=== PATIENT | male | born 1955 | race Caucasian/White ===

== ENCOUNTER 2023-12-31 15:18 | Outpatient (CLI) | payer MEDICARE, OTHER, SELFPAY ==
--- NOTE | 2023-12-31 15:30 | MR_ITS ---
[address] [address] Phone:?[phone] Fax:?[phone] Referring Physician Information: Bob Perdomo M.D. [address] [facility] [address] Phone:?[phone] Fax:?[phone] Patient:?Matty Naranjo D.O.B:?1955 Sex:?Male Phone:?[phone] [facility] MRN:?[id number] Exam Date:?12/31/2023 EXAM: MRI of the RIGHT SHOULDER, without contrast CLINICAL INFORMATION: Male, 68 years old, with right shoulder pain. INDICATION: Evaluate for rotator cuff tear. PRIOR SURGERY: None reported. PLAIN FILMS: Shoulder radiograph dated 11/28/2023. COMPARISONS: No prior MRIs available. TECHNICAL INFORMATION: Using a 1.5T MR scanner and a localizing surface coil: coronal obliques: PD, T2, STIR sagittal obliques: PD, T2 axials: PD, T2 SEDATION: None CONTRAST: None FINDINGS: Bones: Proximal humerus: No fracture or marrow edema/pathology. No humeral Hill-Sachs or reverse Hill-Sachs lesion/impaction or contusion. Glenoid: No fracture or marrow edema/pathology. No osseous Bankart lesion. Rotator cuff and muscles/tendons: Supraspinatus: Full-thickness, essentially full-width tear of supraspinatus, tendon retraction to the mid humeral head. No muscle atrophy. A few poor quality tendon fibers may remain partially intact, posteriorly. Infraspinatus: Moderate marked infraspinatus tendinopathy with a 2.2 x 2.6 cm area of intermediate grade partial-thickness articular surface tearing (sagittal T2 series 8 image 7 and coronal T2 series 6 image 16). No muscle atrophy. Teres minor: No tendinopathy, tear or atrophy. Subscapularis: Mild-moderate tendinopathy of the superior distal subscapularis, with partial-thickness interstitial tearing at the superior leading edge of the tendon over an area measuring 1.1 x 1.1 cm and involving approximately one third of the tendon thickness (sagittal PD series 7 image 12 and axial PD series 3 image 19). Additionally, 2 intramuscular lipomas are present within the subscapularis muscle belly, the larger of which measures 3.5 x 1.3 x 3.2 cm. Deltoid: No strain or atrophy. Coracoacromial arch: Acromion morphology: The acromion has type II morphology. No discrete subacromial osseous spur or os acromiale. Acromiohumeral space: The acromiohumeral space is within normal limits. Coracohumeral space: The coracohumeral space is within normal limits. Acromioclavicular joint: Joint: Marked AC joint arthropathy with 5 mm of inferior osteophytosis, which effaces the underlying supraspinatus (sagittal T2 series 8 image 18 and coronal T2 series 6 image 13) Ligaments: Coracoclavicular ligaments are intact. Bursae: Subacromial-subdeltoid: Moderate subacromial-subdeltoid bursitis. Subcoracoid: No convincing subcoracoid bursal thickening/bursitis. Biceps tendon: The long head of the biceps tendon is present within the bicipital groove, but becomes medially subluxated at the lesser tuberosity. Mild-moderate tendinopathy and fraying of the intra-articular biceps long head tendon, without split/tear (sagittal PD series 7 images 11-16). Glenohumeral joint: Effusion/cyst: Mild-moderate glenohumeral joint effusion. Articular cartilage: Humeral head: No osteochondral abnormalities. Glenoid: No osteochondral abnormalities. Loose bodies: No discrete intra-articular body within the joint. Labrum:?Intrasubstance degeneration and linear tearing is present throughout the superior and posterosuperior labrum (coronal STIR series 4 images 13-19). The remainder of the labrum is intact. No paralabral cyst. Inferior glenohumeral ligament/axillary pouch:?Intact. The axillary pouch is normal in thickness and signal. No evidence of adhesive capsulitis or capsular injury. IMPRESSION: 1. Full-thickness, essentially full-width tear of supraspinatus, tendon retraction to the mid humeral head. There is also moderate-marked infraspinatus tendinopathy with broad-based intermediate grade partial-thickness articular surface tearing. 2. Findings in keeping with a biceps stephany injury: -Mild-moderate subscapularis tendinopathy with a 1.1 x 1.1 cm area of low-grade partial-thickness interstitial tearing at the superior leading edge of the tendon. 2 intramuscular lipomas are incidentally noted in the subscapularis muscle belly. -Medial subluxation of the biceps long head tendon at the lesser tuberosity. -Mild-moderate tendinopathy and fraying of the intra-articular biceps long head tendon. 3. Intrasubstance degeneration and linear tearing of the superior/posterosuperior labrum, which is of uncertain clinical significance. 4. Marked AC joint arthropathy with inferior osteophytosis that effaces the underlying supraspinatus. Additionally, there is moderate subacromial-subdeltoid bursal fluid/bursitis. However, the acromiohumeral space is normal. 5. No full-thickness chondral defect or evidence of glenohumeral joint osteoarthritis. BC Electronically signed on 01/01/2024 8:23:00 AM by Rohan Chaudhari M.D.
== END 2023-12-31 15:19 | disposition home or self-care (01) ==
PROVIDERS: PCP Nurse Practitioner; Visit Provider Orthopaedic Surgery
DX: M25.511 Pain in right shoulder (principal); M75.101 Unspecified rotator cuff tear or rupture of right shoulder, not specified as traumatic; S43.431A Superior glenoid labrum lesion of right shoulder, initial encounter; M75.51 Bursitis of right shoulder; M19.011 Primary osteoarthritis, right shoulder
CPT/HCPCS: 73221

== ENCOUNTER 2024-03-09 07:12 | Day surgery (SDC) | payer MEDICARE, OTHER, SELFPAY ==
[2024-03-09] VITALS (15 sets, daily range): BP systolic 122–153; BP diastolic 62–95; PULSE 56–74; RESP 14–18; TEMP 36.1–37.3; O2SAT 93–98; BMI 30.1
[2024-03-09] MEDS: EPINEPHrine 1 MG in SODIUM CHLORIDE IRRIG SOLUTION 3,000 ML 9003 MG IRRIGATION ×3 (07:30→08:10)
[2024-03-09] MEDS: ACETAMINOPHEN 500 MG TABLET 1000 MG PO (08:01)
[2024-03-09] MEDS: CELECOXIB 200 MG CAPSULE PO (08:01)
[2024-03-09] MEDS: OXYCODONE (CR) 10 MG TAB.ER.12H PO (08:01)
[2024-03-09] MEDS: LACTATED RINGERS 1000 ML 1,000 ML 100 ML IV ×2 (08:05→09:21)
[2024-03-09] MEDS: SODIUM CHLORIDE 0.9 % (FLUSH) 10 ML SYRINGE IVF (08:06)
[2024-03-09] MEDS: fentaNYL 100 MCG/2 ML inj IVP (08:37)
[2024-03-09] MEDS: MIDAZOLAM HCL 1 MG/ML inj IVP (08:37)
--- NOTE | 2024-03-09 08:38 | SUR.PREOP ---
TIME?OUT:?0836 PT/RN/MDA?VERIFICATION?OF?SURGICAL?SITE,?PROCEDURE,?AND?CONSENT OBTAINED?PRIOR?TO?INVASIVE?PROCEDURE. all in agreement
[2024-03-09] MEDS: CEFAZOLIN 2 GM INJ IVP (09:00)
--- NOTE | 2024-03-09 09:45 | W.PM.NB ---
Nerve Block Nerve Block Time Seen by Provider: 08:38 Date Seen: 03/09/24 Type of block requested by surgeon for post-operative analgesia: supraclavicular Side: right Time out performed: Yes Verification of patient name: Yes Verification of date of : Yes Site marking: site marked Name of person performing procedure: Jim Continuous monitoring Was continuous monitoring of O2 sat, B/P, satellite project site monitor, recorded every 15 minutes?: Yes Procedure Checklist: sterile prep, needles and gloves Ultrasound guided. Images saved: Yes Medications given in 5ml increments after negative aspiration: Ropivicaine %: 0.5 mL: 20 Needle gauge: 22 Decadron (mg): 10 Precedex (mcg): 25 Patient tolerated procedure well: Yes Block Charges Block Charge (with Pro Fee): Brachial Plexus Use of Ultrasound Machine for Block: Yes- US Guidance/pain block
--- NOTE | 2024-03-09 09:45 | W.ANESCHARGE ---
Anesthesia Charges Start Date/Time Anesthesia Start Date: 03/09/24 Anesthesia Start Time: 08:51 Stop Date/Time Anesthesia Stop Date: 03/09/24 Anesthesia Stop Time: 10:44
--- NOTE | 2024-03-09 10:15 | PM.ORPRC ---
Procedure Note Date of procedure: 03/09/24 Procedure: PREOPERATIVE DIAGNOSIS: Right shoulder rotator cuff tear, AC joint arthrosis, labral tearing POSTOPERATIVE DIAGNOSIS: Right shoulder rotator cuff tear, AC joint arthrosis, labral tearing NAME OF OPERATION: Right shoulder arthroscopic limited glenohumeral debridement, subacromial decompression, distal clavicle excision, mini open rotator cuff repair SURGEON: Bob Perdomo MD [employer] OFFBEARER: Suzy Reddy PA-C ANESTHESIA: Supraclavicular block plus general endotracheal ESTIMATED BLOOD LOSS: 5 mL COMPLICATIONS: None SPECIMENS: None DRAINS: None PREOPERATIVE ANTIBIOTICS: Ancef 2 grams INDICATIONS: The patient is a 68-year-old with a history of right shoulder pain secondary to the above diagnoses. Despite appropriate non operative management, they continue to have symptoms. Operative intervention was recommended. The risks, benefits and expected outcomes were discussed in detail. These included but were not limited to: Infection, bleeding, injury to blood vessel or nerve, venous thromboembolism. All questions were answered to their satisfaction. PROCEDURE: A supraclavicular block was placed by Anesthesia. General anesthesia was administered. The patient was placed in the high beach chair position. The right shoulder was prepped and draped in the usual sterile fashion. The glenohumeral joint was infiltrated with 20 mL of normal saline with epinephrine. The posterior portal was established, the arthroscope was introduced. The anterior portal was established, Diagnostic arthroscopy was performed with findings as follows: The biceps and biceps anchor are intact. There is no biceps instability. The anterior, posterior and superior labrum show age-appropriate degenerative tearing. Articular surfaces on the humeral head and glenoid are normal. There are no loose bodies. There is a full-thickness tear of the supraspinatus, into the infraspinatus. The upper border of the insertion of the subscap appears normal. The anterior, superior and posterior labrum was debrided with the shaver. The arthroscope was placed in the subacromial space, the lateral portal was established. The Arthrex [place] was used to dissect the acromion free. The CA ligament was recessed off the anterior acromion, the AC joint was exposed. The acromioplasty was performed with the bur in the posterior portal. The bur was then placed in the lateral portal and the lateral and anterior aspect of the acromion were resected. The undersurface of the distal clavicle was resected through the lateral portal. Finally, the bur was placed in the anterior portal and the remainder of the distal clavicle was resected for a total of 10 mm. An accessory anterolateral portal was placed. The subacromial/subdeltoid bursa was aggressively debrided. There is a full-thickness tear of the supraspinatus, into the infraspinatus. Arthroscopic instruments were removed. The accessory anterolateral portal was extended proximally and distally, subcutaneous dissection was taken with electrocautery to the deltoid. The deltoid was divided in line with its fibers. The static retractor was placed. The subacromial/subdeltoid bursa was debrided with the Garcia scissors. The few remaining fibers of the infraspinatus were released off the greater tuberosity. The greater tuberosity was debrided to punctate bleeding bone using the arthroscopic bur. The bicipital groove was opened and the upper insertion of the subscap was inspected and was found to be intact without tearing. Therefore was left intact. Two Arthrex BioComposite SwiveLock anchors were placed just off the articular surface. Both limbs of the FiberWire and fiber tape were passed using the scorpion. A fiber link was placed in the leading edge of the rotator cuff x2. Two margin convergence sutures were placed with a # 2 FiberWire. These were tied over the top of the cuff, covering the greater tuberosity. We tied the 2 central FiberWire sutures over the rotator cuff. We then proceeded with a lateral row of SwiveLock anchors x 2 crossing the FiberTape and incorporating the FiberWire and fiber link into each lateral row anchor. The suture on the eyelet was passed through the leading edge of the rotator cuff and tied over the top resulting in a simple suture to each lateral row anchor. This provides an anatomic, watertight repair of the rotator cuff. There is no tension on the repair with the shoulder at 0? abduction. The wound was irrigated with normal saline off the pump. The deltoid was repaired with an 0 Vicryl in an interrupted [id number] fashion. Subcutaneous tissues were closed with a 3-0 Vicryl. Skin was closed with a 3-0 Monocryl in a subcuticular fashion. A dry dressing and sling were applied. Sponge and needle counts were correct x2. The patient tolerated the procedure well. There were no apparent complications. They were carefully transferred to the hospital bed and taken to the postanesthesia care unit in satisfactory condition. PLAN: The patient will be discharged to home. No active range of motion of the shoulder will be allowed for 6 weeks postoperatively. They can work on active range of motion of the elbow, wrist and fingers. They will follow up in the office next week for a wound check and an AP and transscapular Y-view of the shoulder prior to being seen.
--- NOTE | 2024-03-09 10:48 | W.ANESCHARGE ---
Anesthesia Charges Start Date/Time Anesthesia Start Date: 03/09/24 Anesthesia Start Time: 08:51 Stop Date/Time Anesthesia Stop Date: 03/09/24 Anesthesia Stop Time: 10:44
--- NOTE | 2024-03-09 13:26 | SUR.PHASEII ---
pt did well. Voided x1, Tolerated coffee, declined food. Denies pain in shoulder- pt states I can't feel my shoulder. Right arm in sling. dressing c/d/i. Ambulated pt out to chair. Discharge home with .
== END 2024-03-09 13:00 | disposition home or self-care (01) ==
PROVIDERS: PCP Nurse Practitioner; Visit Provider Orthopaedic Surgery
PROC: (CPT 23412; principal; 2024-03-09 09:00)
DX: M75.101 Unspecified rotator cuff tear or rupture of right shoulder, not specified as traumatic (principal); M19.011 Primary osteoarthritis, right shoulder; S43.431A Superior glenoid labrum lesion of right shoulder, initial encounter; G89.18 Other acute postprocedural pain
CPT/HCPCS: 29826; 29824; 29822; 23412; 01630; 64415; 76942; A9270; C1713; J0171; J0330; J0690; J1100; J2250; J2371; J2405; J2704; J2795; J3010; J7120

== ENCOUNTER 2024-07-09 08:30 | Outpatient (RCR) | payer MEDICARE, OTHER, SELFPAY ==
--- NOTE | 2024-03-26 09:46 | PT.OPEX ---
PT [place] Outpatient Eval PT [facility] Outpatient Eval Start: 03/26/24 07:19 Freq: Status: Active Protocol: Document 03/26/24 07:20 DINA (Rec: 03/26/24 09:42 DINA [id number]) E-signed By Jose Pennington PT Physical Therapy Outpatient Evaluation Insurance Information Insurance Name Medicare B Medical Diagnosis Right shoulder arthroscopic mini open rotator cuff repair Treating Diagnosis Right shoulder pain Right shoulder weakness Decreased right shoulder ROM Referring MD Mara Stallworth Subjective Subjective Pt. comes to therapy today S/P right shoulder arthroscopic mini open rotator cuff repair for full thickness supraspinatus tear into infraspinatus on 03/09/24. He feels like he probably overdid it lifting weights at the [facility] in an effort to increase his strength, being the tipping point from some chronic issues in shoulder. No prior surgeries noted in either shoulder and he is right handed. He has done quite well since surgery with mild pain controlled with meds and ability to sleep in his bed. He has been avoiding any active use of right shoulder, performing elbow, wrist and hand AROM only. He denies any swelling, numbness, or tingling in right UE. 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 His goal is to regain normal motion and strength to allow all activities including biking, golf, tennis and weight training. PMH includes; HTN, and right DEISY. Pain Comments 2 Date of Surgery (If applicable) 03/09/24 Objective Other/Pertinent Objective CROM: WFL Left shoulder AROM/PROM/ strength are normal Right shoulder PROM: flexion 90 deg; ER 35 deg; abduction 60 deg. Right elbow, wrist, and hand AROM WNL. Assessment Assessment/Impression Objectively, pt. demonstrates; decreased right shoulder PROM as expected following RCR surgery with 90 deg of flexion , 35 deg of ER and 60 deg of abduction; functional right elbow, wrist and hand AROM; scapular stabilizer and cuff weakness; and mild hypertonus of right upper trap, interscapular and deltoid muscle groups. Nothing unexpected is noted today at 2 1/2 weeks S/P right cuff repair. He would benefit from skilled therapy working on progressive PROM, AAROM, AROM, scapular strengthening and cuff strengthening per protocol. Primary Functional Limitations right arm reaching, lifting, dressing, biking, golf , tennis Plan of Care Rehabilitation Potential Excellent Physical Therapy Goals 1. Pt. will be indep. with HEP for self maintenance in 8 weeks. 2. Pt. will demonstrate improved right shoulder ROM to WFL in 8 weeks. 3. Pt. will be able to raise arm overhead for ADL's without difficulty in 12 weeks. 4. Pt. will demonstrate functional right shoulder strength for ADL's in 16 weeks . Coordination/Communication With Referral Source Treatment Plan/Direct Interventions Joint Mobilization,Manual Therapy,Neuromuscular Re-ed, Self-Care/Home Management, Therapeutic Exercises Frequency/Duration 2 times a week reducing to weekly for 12 weeks. Every other week for another 8 weeks. Patient Will Be Discharged From Therapy Independent w/HEP, Independently Progressing Evaluation Billing Complexity Low Certification Information Initial Certification Date 03/26/24 Ending Certification Date 06/24/24 Provider Signature Required Yes Provider Signature Shows Agreement With POC & Medical Necessity Physician NPI Number Write NPI# Here Physician Comment/Change : Physician Signature & Date Requested Please Sign/Date Here
--- NOTE | 2024-06-15 10:10 | PT.OPDNX ---
PT [place] Outpatient Daily Note PT [facility] Outpatient Daily Note Start: 03/26/24 07:19 Freq: Status: Active Protocol: Document 06/15/24 07:34 VINNY (Rec: 06/15/24 10:09 VINNY [id number]) E-signed By Dianne Stokes DPT PT OP Daily Progress Note Visit Information Note Type Daily Note,Recert/Progress Note Visit Number [id number] Insurance Information Recert Due Date 06/24/24 Insurance Name Medicare B Medical Diagnosis Right shoulder arthroscopic mini open rotator cuff repair Treating Diagnosis Right shoulder pain Right shoulder weakness Decreased right shoulder ROM Referring MD Mara Stallworth Subjective Preferred Name Tone Subjective Patient reports doing well. HEP is going fine. Doing some massage, using ointments, occasional heat feels good. Some tylenol for general aches and pains. Not needing ice lately. Sleeping fine. Feels he is progressing well. Date of Last Physician Visit 05/24/24 Date of Surgery (If applicable) 03/09/24 Home Exercise Home Exercise Comments codmans shoulder rolls, scap sets stephany flex, circles CW/CCW table slide/wall slide flex, circles CW/CCW, alphabet supine shoulder stab exercises with 1# wt green TB - ext, rows, flex, IR , ER prone - ext, flex, row - add 1 -2# wt yellow tube - bilateral ER HO issued for HEP Access Code: [email or web address] Objective Patient Instructed in Risks/Benefits Yes Therapeutic Exercise Therapeutic Exercise Minutes (minutes) 40 Therapeutic Exercise: To Restore Reviewed HEP Functional Status UBE x 5 min, high resistance, fwd/back stephany flex, circles CW/CCW codmans between exercises throughout session wall slide flex, circles CW/ CCW - x 20 each wall slide snow angels x 10 each, reverse snow jasper x 10 lat pull down - 6 plates - 2 x 20. Focus on shoulder/scap mechanics, posture. hands together flex 2 x 10 with 5# wt wall ball - bouncing B/R/L x 20 each, circles CW/CCW 2 x 10 each, push up 2 x 10 PNF D1/D2 ext pattern - 3 plates - bilaterally x 20 facing R/L anterior shoulder/pec stretching R/L CC fwd reaching - 3 plates - bilaterally x 20 each R/L sided PNF D1/D2 flex pattern - 2 1/2 plates - bilaterally x 20 facing R/L wall slide flex with lift off x 10 - slow, hold positions bicep curls - 2 1/2 plates - x 20 triceps ext - 3 plates - x 20 CC facing sideways - 2 plates - bilateral reaching forward x 10 facing R/L R shoulder AROM Treatment Minutes Timed Code Treatment Minutes 40 Total Treatment Time 40 Billing Units Therapeutic Exercise Units 3 Assessment/Impression Assessment/Impression Patient is s/p R shoulder RCR 03/09/24. He continues to progress well after surgery. Soreness in R shoulder has decreased, seems to be resolving. He is cautious with bicep strengthening in his HEP. Reviewed pacing himself with strengthening to not flare up a tendonitis. Reviewed codmans, icing to decrease soreness. Instructed to decrease reps if increasing wts or to use smaller wts with progression to higher wt maybe 2x/week. Patient expressed understanding. Able to continue with gym program. Ongoing focus on R shoulder ROM, stretching, strengthening , shoulder stabilization, and posture/shoulder mechanics. Some R shoulder weakness and fatigue with sets and by end of session but overall improving and progressing well . Patient is able to demonstrate R shoulder AROM WFL. Some shoulder compensation noted with abd motion due to weakness. Patient is making progress toward his PT goals. Patient with 3 additional PT visits scheduled. Plan to continue with PT for additional shoulder strengthening, stabilization, and improved endurance for return to full functional activities. Patient is in agreement with plan. Recheck in PT next week . Continue with PT POC. Plan of Care Physical Therapy Goals 1. Pt. will be indep. with HEP for self maintenance in 8 weeks. 2. Pt. will demonstrate improved right shoulder ROM to WFL in 8 weeks. 3. Pt. will be able to raise arm overhead for ADL's without difficulty in 12 weeks. 4. Pt. will demonstrate functional right shoulder strength for ADL's in 16 weeks . Daily Plan of Care Continue per POC Recertification Information Recertification Start Date 06/15/24 Recertification Due Date 08/14/24 Reasons to Continue Skilled Therapy see above note Rehabilitation Potential good Continued Plan of Care and Interventions 1x/week Provider Signature Shows Agreement With POC & Medical Necessity Physician Comment/Change Comment or Changes Physician NPI Number #
== END 2024-11-06 23:59 | disposition home or self-care (01) ==
PROVIDERS: PCP Nurse Practitioner; Visit Provider Physician Assistant
DX: Z47.89 Encounter for other orthopedic aftercare (principal)
CPT/HCPCS: 97110; 97140; 97161; 97535

== ENCOUNTER 2025-04-18 11:30 | Emergency (ER) | payer MEDICARE, OTHER, SELFPAY ==
--- OUTSIDE RECORDS SUMMARY | 2025-03-21 08:00 | XMS_ITS | Encounter Summary ---
Author Organization [facility] Address [address] [place] [address] Care Team Providers Care Secondary Market Manager Name Role Phone Sharmaine Crisostomo APRN, C.N.P., D.N.P. P [facility] Care Provider Reason for Visit * Outpatient (Routine) - Authorized Specialty Diagnoses / Procedures Referred By Jan t Referred To Contact Nutrition Diagnoses Morbid Obesity Body Mass Index >= 35 with Comorbid Condition (HCC) Sharmaine Crisostomo APRN, C.N.P., D.N.P. [address] [place] [address] Phone: tel: fax: [facility] Region Referral ID Status Reason Start Date Expiration Date V isits Requested Visits Authorized [id number] Authorized 01/19/2025 07/21/2026 1 1 Encounter Details Date Type Department Care Team (Late st Contact Info) Description 03/21/2025 9:00 AM CDT Clinical Support Department of Nutrition in [place], [place] [address] [place] [phone] Sharmaine Crisostomo APRN, C.N.P., D.N.P. [address] [place] [address] Margaret Figueroa RDN, LD [address] [place] [address] Obesity Body Mass Index 30-39.9 Adult (Primary Dx) Social History Tobacco Use Types Packs/Day Years Used Date Smoking Tobacco: Former Cigarettes 1 20 0 02/07/1975 - 02/07/1995 Passive Smoke Exposure: Past Smokeless Tobacco: Never Alcohol Use Standard Drinks/Week Comments Yes 4 (1 standard drink = 0.6 oz pur e alcohol) 2-3 on a social occasion [facility] Utilities Answer Date Recorded In the past 12 months has e [facility], gas, oil, or water [employer] threatened to shut off services in your home? No 07/09/2024 Humiliation, Afraid, Rape, and Kick questionnair e Answer Date Recorded Within the last year, have y ou been afraid of your partner or ex-partner? No 07/03/2023 Within the last year, have y ou been humiliated or emotionally abused in other ways by your partner or ex-partner? No Within the last year, have y ou been kicked, hit, slapped, or otherwise physically hurt by your partner or ex-partner? No 07/03/2023 Within the last year, have y ou been raped or forced to have any kind of sexual activity by your partner or ex-partner? No 07/03/2023 Hunger Vital Sign Answer Date Recorded Within the past 12 months, y ou worried that your food would run out before you got the money to buy more. Never true 07/09/19 25 Within the past 12 months, t he food you bought just didn't last and you didn't have money to get more. Never true 07/09/2024 PRAPARE - Transportation Answer Date Re corded In the past 12 months, has l ack of transportation kept you from medical appointments or from getting medications? No 06/11 In the past 12 months, has l ack of transportation kept you from meetings, work, or from getting things needed for daily living? No 07/09/2024 Housing Stability Answer Date Recorded What is your living situation today? I have a [facility] place to live 07/09/2024 Sex and Gender Information Value Date Recorded Sex Assigned at Male 06/27/2023 9:56 AM TELECOMMUNICATIONS SALES REPRESENTATIVE Legal Sex Male 9:28 AM TELECOMMUNICATIONS SALES REPRESENTATIVE Gender Identity Male 06/27/2023 9:56 AM TELECOMMUNICATIONS SALES REPRESENTATIVE Sexual Orientation Straight 06/27/2023 9: 56 AM TELECOMMUNICATIONS SALES REPRESENTATIVE documented as of this encounter Progress Notes * Margaret Figueroa RDN, LD - 03/21/2025 9:00 AM CDT REASON FOR VISIT: Medical Nutrition Therapy for weight management. Referred by: Sharmaine Crisostomo APRN, C.N.P., D.N.P. PRESENT FOR VISIT: Patient was seen alone for today's visit. NUTRITION ASSESSMENT: Typical meal pattern/daily food intake: Breakfast: may have a smoothie with AG1 powder, creatine, milk, ice, KaChava powder when working out Lunch: skips Supper: eats around 5-8 pm (usually first meal of the day) could be salad with pizza or salad with burger and alvarado if eating out. If cooking at home could be cod + green beans + sweet potato and salad- recent dinner meal Snacks: previously was Cheetos, Doritos, recently switched to pretzels. Ice- cream about 3 times perweek. Beverages: water- 4 16 ounce bottles daily, skim milk in smoothie, 1 soda per day- zero sugar. 2- 12 oz mugs coffee- nothing added, rarely tea though does enjoy. Alcohol use: at most 3 drinks per week though this is not a consistent weekly occurrence Restaurant dining: often bar and grill- burger and alvarado meal Food preparation/grocery shopping: reports he and his are retired and don't do a lot of cooking at home. Additional information pertinent to visit: Patient is currently in the Action stage of Behavior Change. Tone reports he would like to lose some weight and reports he wants to be healthy. His goal weight would be 84-86 kg. He reports he has some interest in a GLP but would ultimately prefer to avoidadditional medications and ideally would like to get off some of his current medications. He reports he practices intermittent fasting and generally tries to eat just once a day. He describes himselfas a person who is black or white when it comes to foods and finds it hard to self regulate himselfat times due to oral fixation from being a previous smoker and food was used as a way to show love as a child. Physical Activity: does 1 hour of zone training 4 days per week and does 3 days per week of weight training. Generally tries to avoid going several days between workouts. Reports he recently has beendoing workouts at 6 am and reports he has felt great and noticed an improvement in his energy levels. Supplements/pertinent medications: per EMR Problem List[1] ANTHROPOMETRICS No weight today WEIGHT HISTORY: Wt Readings from Last 6 Encounters: 01/19/25 98.2 kg 10/25/24 97.3 kg 10/12/24 97.3 kg 08/19/24 99.3 kg 07/13/24 97.6 kg 02/18/24 97.6 kg ESTIMATED NEEDS: Protein needs: 75-90 grams per day PERTINENT LABS: not applicable SOCIAL HISTORY: Living arrangement: Lives with . Learning barriers: none NUTRITION DIAGNOSIS: Other (comment) (Obesity) related to irregular eating pattern, lack of adequate fiber and protein intake as evidenced by reported daily intake, BMI: 30.3 kg/m2 and patient desired weight loss NUTRITION INTERVENTION: Interventions: Nutrition education, Nutrition counseling Discussed medical nutrition therapy management of obesity at length including energy balance, timing and consistency of meals and snacks, meal and snack examples, behavioral management, beverages, and physical activity. Specific goals set with patient; see below. Patient verbalized understanding and agreement of plan and noted no further questions or concerns at this time. Handouts Provided: Increasing Protein In Your Diet MONITORING AND EVALUATION: Nutrition Indicator Indicator/Desired Outcome: Patient desired weight loss, goal weight set by patient is 84-86 kg Patient Goal(s): 1. Will aim to eat at least 3 times per day, ideally including about 25-30 grams of protein per each meal would be preferred, focused on lean quality sources 2. Would recommend working on increasing fiber intake- fruits, vegetables, nuts, seeds, beans and whole grains 3. Would recommend doing smoothie- within 30 minutes of finishing workout 4. Would encourage trying to do some form of structured exercise at least every other day, try avoiding more than 2 days off. FOLLOW UP PLAN: 1. Patient is provided with RDN's contact information and encouraged to call or send message via Patient Portal with questions or concerns. 2. Encouraged patient to follow up per patient request. In Person. Total time spent with patient: 62 minutes. [1] Patient Active Problem List Diagnosis Hypertension Essential Primary Hyperlipidemia Benign Prostatic Hyperplasia Without Obstruction Elevated Prostate-Specific Antigen Glaucoma Impaired Fasting Glucose Other Specified Hearing Loss Bilateral Polyp Colon Nodule Prostate Emphysema (HCC) documented in this encounter Plan of Treatment Upcoming Encounters Date Type Department Care Team (Late st Contact Info) Description 07/18/2025 9:00 AM TELECOMMUNICATIONS SALES REPRESENTATIVE Office Visit Department of Family Medicine, [facility], in [place], [place] [address] [place] [address] Norma Andre M.D. [address] [place] [address] documented as of this encounter Visit Diagnoses Diagnosis Obesity Body Mass Index 30-39.9 Adult- Primary documented in this encounter Care Teams Secondary Market Manager Relationship Specialty Start Date End Date Corbin-Sharmaine Barron APRN, C.N.P., D.N.P. [address], [place] [phone] PCP - General Family Medicine 08/18/23 documented as of this encounter
--- OUTSIDE RECORDS SUMMARY | 2025-04-18 11:32 | XMS_ITS | Clinical Summary ---
Author Organization [facility] Address [address] [place] [address] Care Team Providers Care Access Liaison Name Role Phone Sharmaine Crisostomo Primary Care Provi salty Encounters Date Type Department Care Team Description 01/17/2025 3:24 PM CDT - 01/17/2025 11:59 PM CDT Hospital Encounter [facility] [address] [place] [address] Sherine Hernandez from Last 3 Months Social History Tobacco Use Types Packs/Day Years Used Date Smoking Tobacco: Never Assessed Sex and Gender Information Value Date Recorded Sex Assigned at Not on file Legal Sex Male 9:59 AM CDT Gender Identity Not on file Sexual Orientation Not on file Plan of Treatment Health Maintenance Due Date Last Done Comments Tetanus booster 1966 Depression screening for age 12+ 1967 BMI (ht and wt on same day) for age 18+ 1973 Hepatitis C screening for age 18-79 1973 Colonoscopy through age 75 2000 Lipids for age 45-75 2000 Pneumococcal series for age 50+ (1 of 1 - PCV) 2005 Zoster (shingles) series for age 50+ (1 of 2) 2005 COVID-19 vaccine series ( - 2024- season) 2025 04/04/2022, 03/06/2021, 06/21/2020, Additional history exists Influenza Vaccine (#1) 2025 RSV vaccine for adults or (1 - 1-dose 75+ series) 2030 Hepatitis B series for 19+ Aged Out N o longer eligible based on patient's age to complete this topic Procedures Procedure Name Priority Date/Time Associated Diagnosis Comments CT CHEST WO Routine 01/17/2025 3:48 PM CDT from Last 3 Months Results * CT CHEST WO (01/17/2025 3:48 PM CDT) Anatomical Region Laterality Modality CHEST, THORAX, HEART Computed To mography Sherine Hernandez CT Final Result from Last [id number] MEDICARE PART B HB ONLY [facility] Care Teams Access Liaison Relationship Specialty Start Date End Date Corbin-Sharmaine Barron, ALF [address] [place], [place] [address]BRENNEN VIEYRA [address] PCP - General Nurse Practitioner 01/14/25
--- OUTSIDE RECORDS SUMMARY | 2025-04-18 11:32 | XMS_ITS | Encounter Summary ---
Author Organization [facility] Address [address] [place] [address] Care Team Providers Care Relay Engineer Name Role Phone Sharmaine Crisostomo APRN, C.N.P., D.N.P. P [facility] Care Provider Reason for Referral * Medication Prior Authorization - Pending Review Specialty Diagnoses / Procedures Referred By Contac t Referred To Contact Diagnoses Dysfunction Erectile Farheen Hamm MPAS, P.A.MickieC., P.A. [address] [place] [address] Phone: tel: fax: Referral ID Status Reason Start Date Expiration Date V isits Requested Visits Authorized [id number] Pending Review 1 1 STITCHER Reason for Visit * Reason Onset Date Comments Med Refill 04/12/2025 Encounter Details Date Type Department Care Team (Late st Contact Info) Description 04/12/2025 Refill Department of Family Medicine, [facility], in [place], [place] [address] [place] [address] Sharmaine Crisostomo APRN, C.N.P., D.N.P. [address] [place] [phone] Med Refill Social History Tobacco Use Types Packs/Day Years Used Date Smoking Tobacco: Former Cigarettes 1 20 0 02/07/1975 - 02/07/1995 Passive Smoke Exposure: Past Smokeless Tobacco: Never Alcohol Use Standard Drinks/Week Comments Yes 4 (1 standard drink = 0.6 oz pur e alcohol) 2-3 on a social occasion [facility] Utilities Answer Date Recorded In the past 12 months has e [employer], gas, oil, or water company threatened to shut off services in your [...] money to buy more. Never true 07/09/19 Within the past 12 months, t he [...] your living situation today? I have a [facility] place to live 07/09/2024 Sex and Gender Information Value Date Recorded Sex Assigned at Male 06/27/2023 9:56 AM EDGE STITCHER Legal Sex Male 9:28 AM EDGE STITCHER Gender Identity Male 06/27/2023 9:56 AM EDGE STITCHER Sexual Orientation Straight 06/27/2023 9: 56 AM EDGE STITCHER documented as of this encounter Plan of Treatment Upcoming Encounters Date Type Department Care Team (Late st Contact Info) Description 07/18/2025 9:00 AM EDGE STITCHER Office Visit Department of Family Medicine, [facility], in [place], [place] [address] [place] [phone] Norma Andre M.D. [address] [place] [address] documented as of this encounter Visit Diagnoses Diagnosis Dysfunction Erectile documented in this encounter Care Teams Relay Engineer Relationship Specialty Start Date End Date Corbin-Sharmaine Barron APRN, C.N.P., D.N.P. [address] [place] [phone] PCP - General Family Medicine 08/18/23 documented as of this encounter
--- OUTSIDE RECORDS SUMMARY | 2025-04-18 11:32 | XMS_ITS | Encounter Summary ---
Author Organization [facility] Address [address] [place] [address] Care Team Providers Care Sweater Designer Name Role Phone Sharmaine Crisostomo APRN, C.N.P., D.N.P. P [facility] Care Provider Reason for Referral * Medication Prior Authorization - Pending Review Specialty Diagnoses / Procedures Referred By Jan t Referred To Contact Diagnoses Body Mass Index 30.0 To 30.9 Adult Sharmaine Crisostomo APRN, C.N.P., D.N.P. [address] [place] [address] Phone: tel: fax: Referral ID Status Reason Start Date Expiration Date V isits Requested Visits Authorized [id number] Pending Review 1 1 Encounter Details Date Type Department Care Team (Late st Contact Info) Description 04/04/2025 Orders Only Department of Family Medicine, [facility], in [place], [place] [address] [place] [address] Sharmaine Crisostomo APRN, C.N.P., D.N.P. [address] [place] [address] Body Mass Index 30.0 To 30.9 Adult (Primary Dx) Social History Tobacco Use Types Packs/Day Years Used Date Smoking Tobacco: Former Cigarettes 1 20 0 02/07/1975 - 02/07/1995 Passive Smoke Exposure: Past Smokeless Tobacco: Never Alcohol Use Standard Drinks/Week Comments Yes 4 (1 standard drink = 0.6 oz pur e alcohol) 2-3 on a social occasion [facility] [employer] Answer Date Recorded In the past 12 months has e [employer], gas, oil, or water [employer] threatened to shut off services in your [...] your living situation today? I have a [facility] place to live 07/09/2024 Sex and Gender Information Value Date Recorded Sex Assigned at Male 06/27/2023 9:56 AM SAMPLE CLERK Legal Sex Male 9:28 AM SAMPLE CLERK Gender Identity Male 06/27/2023 9:56 AM SAMPLE CLERK Sexual Orientation Straight 06/27/2023 9: 56 AM SAMPLE CLERK documented as of this encounter Plan of Treatment Upcoming Encounters Date Type Department Care Team (Late st Contact Info) Description 07/18/2025 9:00 AM SAMPLE CLERK Office Visit Department of Family Medicine, [facility], in [place], [place] [address] [facility] [address] Norma Andre M.D. [address] [place] [phone] documented as of this encounter Visit Diagnoses Diagnosis Body Mass Index 30.0 To 30.9 Adult- Primary documented in this encounter Care Teams Sweater Designer Relationship Specialty Start Date End Date Corbin-Sharmaine Barron APRN, C.N.P., D.N.P. [address] [place] [phone] PCP - General Family Medicine 08/18/23 documented as of this encounter
--- OUTSIDE RECORDS SUMMARY | 2025-04-18 11:32 | XMS_ITS | Encounter Summary ---
Author Organization [facility] Address [address] [place] [address] Care Team Providers Care Button Tufting Machine Operator Name Role Phone Sharmaine Crisostomo APRN, C.N.P., D.N.P. P [facility] Care Provider Reason for Visit * Reason Comments Med Refill Encounter Details Date Type Department Care Team (Late st Contact Info) Description 03/28/2025 Refill Department of Family Medicine, [facility], in [place] [address] [place] [phone] Sharmaine Crisostomo APRN, C.N.P., D.N.P. [address], [place] [phone] Med Refill Social History Tobacco Use Types Packs/Day Years Used Date Smoking Tobacco: Former Cigarettes 1 20 0 02/07/1975 - 02/07/1995 Passive Smoke Exposure: Past Smokeless Tobacco: Never Alcohol Use Standard Drinks/Week Comments Yes 4 (1 standard drink = 0.6 oz pur e alcohol) 2-3 on a social occasion [facility] Utilities Answer Date Recorded In the past 12 months has e [employer], gas, oil, or water [employer] threatened to shut off services in your [...] your living situation today? I have a [facility] place to live 07/09/2024 Sex and Gender Information Value Date Recorded Sex Assigned at Male 06/27/2023 9:56 AM PAPER SALES REPRESENTATIVE Legal Sex Male 9:28 AM PAPER SALES REPRESENTATIVE Gender Identity Male 06/27/2023 9:56 AM PAPER SALES REPRESENTATIVE Sexual Orientation Straight 06/27/2023 9: 56 AM PAPER SALES REPRESENTATIVE documented as of this encounter Plan of Treatment Upcoming Encounters Date Type Department Care Team (Late st Contact Info) Description 07/18/2025 9:00 AM PAPER SALES REPRESENTATIVE Office Visit Department of Family Medicine, [facility], in [place], [place] [address] [place] [address] Norma Andre M.D. [address] [place] [phone] documented as of this encounter Visit Diagnoses Diagnosis Hypothyroidism documented in this encounter Care Teams Button Tufting Machine Operator Relationship Specialty Start Date End Date Sharmaine Crisostomo APRN, C.N.P., D.N.P. [address] [place] [phone] PCP - General Family Medicine 08/18/23 documented as of this encounter
--- OUTSIDE RECORDS SUMMARY | 2025-04-18 11:33 | XMS_ITS | Clinical Summary ---
Author Organization [facility] Address [address] [place] [address] Care Team Providers Care Survey Research Associate Name Role Phone Sharmaine Crisostomo APRN, C.N.P., D.N.P. P [facility] Care Provider Source Comments Patient records contain information from all sites at [facility]. For routine questions regarding patient records, call [phone] during business hours, M-F 8:00 AM - 5:00 PM Central Time. Record requests for emergency care only can be directed to [phone] at any time.[facility] Allergies No known active allergies Medications * This document contains information received from the source organization and may not represent a complete record from that organization. multivitamin-m jxcgnat-IH-dme opene-lutein (CENTRUM SILVER) 0.4 mg-300 mcg- 250 mcg tablet 1 tablet daily. 06/09/19 22 Active cholecalcifero l (Vitamin D3) 125 mcg (5,000 Unit) tablet Take 125 mcg by mouth daily. 05/23/20 23 Active acetaminophen (Pain Relief, acetaminophen, ) 650 mg ER tablet Take 1,300 mg by mouth. 12/31/19 24 Active timolol (Istalol) 0.5 % ophthalmic solution Administer into affected eye(s). 12/31/19 24 Active latanoprost (Xalatan) 0.005 % ophthalmic solution Administer 1 drop into both eyes at bedtime. 02/20/20 24 Active pravastatin (PravachoL) 20 mg tablet Take 1 tablet (20 mg total) by mouth daily. 90 tablet 3 07/29/19 25 Active telmisartan (Micardis) 80 mg tablet Take 1 tablet (80 mg total) by mouth daily. 90 tablet 3 07/29/19 25 Active hydroCHLOROthi azide (HydroDiuril) 50 mg tablet Take 1 tablet (50 mg total) by mouth daily. 1 09/14/19 [address] aspirin [address] tabletIndicati ons:Atheroscle rotic Heart Disease Of [place] Coronary Artery Without Angina Pectoris Take 1 tablet (81 mg total) by mouth daily. 90 tablet 3 01/21/20 25 Active ezetimibe (Zetia) 10 mg tabletIndicati ons:Hyperlipid emia Take 1 tablet (10 mg total) by mouth daily. 03/26/20 Active levothyroxine 25 mcg tabletIndicati ons:Hypothyroi dism TAKE 1 TABLET BY MOUTH DAILY 90 tablet 3 03/31/20 25 Active semaglutide (Wegovy) 0.25 mg/0.5 mL pen injector injectionIndic ations:Body Mass Index 30.0 To 30.9 Adult Inject 0.25 mg under the skin every 7 (seven) days for 4 doses. Follow escalating titration schedule with higher dose every 4 weeks. 2 mL 04/04/20 025 Active tadalafiL (Cialis) 5 mg tabletIndicati ons:Dysfunctio n Erectile 5 mg daily, additional 10-15 mg booster 30 minutes prior to desired erection daily as needed 30 tablet 04/12/20 Active silodosin (Rapaflo) 8 mg capsule Take 1 capsule (8 mg total) by mouth daily. 90 capsule 3 04/12/20 25 026 Active levothyroxine 25 mcg tabletIndicati ons:Hypothyroi dism TAKE 1 TABLET BY MOUTH DAILY 60 tablet 3 11/18/19 025 Discontinued ezetimibe (Zetia) 10 mg tablet TAKE 1 TABLET BY MOUTH DAILY 90 tablet 3 02/02/20 025 Discontinued(Re order) silodosin (Rapaflo) 8 mg capsule Take 1 capsule (8 mg total) by mouth daily. 90 capsule 3 02/03/20 25 025 Discontinued(Re order) tadalafiL (Cialis) 5 mg tabletIndicati ons:Dysfunctio n Erectile 5 mg daily, additional 10-15 mg booster 30 minutes prior to desired erection daily as needed 30 tablet 11 02/05/20 25 025 Discontinued(Re order) Active Problems Problem Noted Date Diagnosed Date Emphysema 01/19/2025 Assessment & Plan (01/20/2025 8:41 AM CDT): Matty presents to discuss low-dose CT results, blood pressure rechecked and obesity. Multiple lung nodules noted on CT, largest 5 mm, not concerning for malignancy. - Order follow-up low dose CT scan in 12 months. Mild Emphysema Mild emphysema consistent with smoking history, occasional wheezing with poor air quality. - Consider an inhaler as needed. Other incidental findings: Calcified mediastinal lymph nodes, presumably sequela of prior granulomatous disease. 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 Patient reports there has been many studies done correlation between podiatry and granulomatous disease. No further workup as needed. Coronary Artery Calcification Moderate coronary artery calcification, consistent with age, diet, and overweight status. Not on aspirin therapy. - Consider starting baby aspirin therapy. - e-Consult with fish butcher Hypertension Blood pressure 144/86 mmHg patient believes this is related to potential white coat syndrome as pressures are always with a normal range at home. Reiterated goal is 140/80 mmHg. - Monitor blood pressure regularly. Obesity - Current BMI 30.31, weight 98.2 kg Matty reports difficulty losing weight despite daily exercise regimens. Interested in GLP-1 medication to assist in weight management-would be beneficial in setting of coronary artery calcification, increased ASCVD risk-recent CT. Aiming for an LDL of less than 70 in the presence of coronary atherosclerosis. - Refer to dietitian for dietary consultation. - Discuss potential use of GLP-1 medication. - Encourage continued exercise, continued efforts to eating habits. General Health Maintenance Scheduled for dermatology appointment for skin check. Orders: Nutrition - Weight management medical nutrition therapy overweight/obesity consult (clinic); Future Lipid Panel; Future Hypertension Essential Primary 07/03/2023 Overview (07/03/2023): Also with white coat hypertension. Assessment & Plan (01/20/2025 8:41 AM CDT): Matty presents to discuss low-dose CT results, blood pressure rechecked and obesity. Multiple lung nodules noted on CT, largest 5 mm, not concerning for malignancy. - Order follow-up low dose CT scan in 12 months. Mild Emphysema Mild emphysema consistent with smoking history, occasional wheezing with poor air quality. - Consider an inhaler as needed. Other incidental findings: Calcified mediastinal lymph nodes, presumably sequela of prior granulomatous disease. 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 Patient reports there has been many studies done correlation between podiatry and granulomatous disease. No further workup as needed. Coronary Artery Calcification Moderate coronary artery calcification, consistent with age, diet, and overweight status. Not on aspirin therapy. - Consider starting baby aspirin therapy. - e-Consult with fish butcher Hypertension Blood pressure 144/86 mmHg patient believes this is related to potential white coat syndrome as pressures are always with a normal range at home. Reiterated goal is 140/80 mmHg. - Monitor blood pressure regularly. Obesity - Current BMI 30.31, weight 98.2 kg Matty reports difficulty losing weight despite daily exercise regimens. Interested in GLP-1 medication to assist in weight management-would be beneficial in setting of coronary artery calcification, increased ASCVD risk-recent CT. Aiming for an LDL of less than 70 in the presence of coronary atherosclerosis. - Refer to dietitian for dietary consultation. - Discuss potential use of GLP-1 medication. - Encourage continued exercise, continued efforts to eating habits. General Health Maintenance Scheduled for dermatology appointment for skin check. Orders: Nutrition - Weight management medical nutrition therapy overweight/obesity consult (clinic); Future Lipid Panel; Future Hyperlipidemia 07/03/2023 Overview (07/03/2023): Has tried other statins with adverse effects. Currently on Pravastatin and ezetimibe. Assessment & Plan (01/20/2025 8:41 AM CDT): Orders: Lipid Panel; Future Benign Prostatic Hyperplasia Without Obstruction 07/03/2023 Elevated Prostate-Specific Antigen 07/03/2023 Nodule Prostate 12/03/2019 Impaired Fasting Glucose 03/06/2018 Other Specified Hearing Loss Bilateral 6 Glaucoma 05/17/2014 Polyp Colon 10/01/2011 Resolved Problems Problem Noted Date Diagnosed Date Resolved Date Hyponatremia 10/17/2022 07/03/2023 Neoplasm Uncertain Behavior Skin 06/11/2012 07/03/2023 Encounters Date Type Department Care Team Description 04/12/2025 Refill Department [facility], [facility], [address] [place] [address] Sharmaine Crisostomo APRN C.N.PTristian, D.N.P. Med Refill 04/04/2025 Orders Only Department of [facility], [facility], in [place], [place] [address] [place] [address] Sharmaine Crisostomo APRN, C.N.P., D.N.P. Body Mass Index 30.0 To 30.9 Adult (Primary Dx) 03/28/2025 Refill Department [facility], [facility], in [place], [place] [address] [place] [address] Sharmaine Crisostomo APRN C.N.P., D.N.P. Med Refill 03/21/2025 9:00 AM CDT Clinical Support Department of Nutrition in [place], [place] [address] [phone] Sharmaine Crisostomo APRN, C.N.P., D.N.P. Margaret Figueroa, RDN, LD Obesity Body Mass Index 30-39.9 Adult (Primary Dx) 02/24/2025 9:00 AM CDT Office Visit Department of Urology in [address] [phone] Farheen Hamm, MPAS, P.A.-C., P.A. Benign Prostatic Hyperplasia Hypertrophy With Obstruction (Primary Dx); Retention Urinary Acute; Dysfunction Erectile; Screening Examination Prostate Cancer Discharge Disposition: Home or Self Care 02/23/2025 8:13 AM CDT - 02/23/2025 11:59 PM CDT Hospital Encounter Department of Laboratory Medicine in [address] [phone] Sharmaine Crisostomo APRN C.N.P., D.N.P. Morbid Obesity Body Mass Index >= 35 with Comorbid Condition (HCC); Atherosclerotic Heart Disease Of [place] Coronary Artery Without Angina Pectoris; Hyperlipidemia Discharge Disposition: Home or Self Care 02/23/2025 8:13 AM CDT - 02/23/2025 11:59 PM CDT Hospital Encounter Department of Laboratory Medicine in [address] [phone] Sharmaine Crisostomo APRN, C.N.P., D.N.P. Hypothyroidism Discharge Disposition: Home or Self Care 02/23/2025 8:10 AM CDT - 02/23/2025 8:12 AM CDT Hospital Encounter Department of Laboratory Medicine in [address] [phone] Farheen Hamm MPAS, P.A.-C., P.A. Screening Examination Prostate Cancer Discharge Disposition: Home or Self Care 02/04/2025 Orders Only Urgent Care in [address] [phone] Farheen Hamm MPAS, P.A.-C., P.A. Dysfunction Erectile (Primary Dx) 02/02/2025 Orders Only Department of Urology in [address] [phone] Farheen Hamm MPAS, P.A.-C., P.A. 01/27/2025 Refill Department of Family Medicine, [facility], in [address] [phone] Sharmaine Crisostomo APRN, C.N.P., D.N.P. Med Refill 01/20/2025 Clinical Communication Department of Cardiovascular Diseases in [place], [place] [address], [place] [address] Kale Lockhart M.D. Curbside Consultation 01/19/2025 9:00 AM CDT Office Visit Department of Family Medicine, [facility], in [place], [place] [address] [facility] [address] Sharmaine Crisostomo APRN, C.N.P., D.N.P. Morbid Obesity Body Mass Index >= 35 with Comorbid Condition (HCC) (Primary Dx); Follow Up Exam; Hypertension Essential Primary; Cough Acute; Emphysema (HCC); Atherosclerotic Heart Disease Of [place] Coronary Artery Without Angina Pectoris; Hyperlipidemia 01/18/2025 Results Follow-Up Department of Pulmonary Medicine in [place], [place] [address] [place] [address] Chest Lung Cancer Screen Low Dose without IV Contrast 01/17/2025 3:16 PM CDT - 01/17/2025 11:59 PM CDT Hospital Encounter Department of Radiology in [place], [place] [address], [place] [address] Sherine Hernandez M.D. Smoking Tobacco Use Personal History Discharge Disposition: Home or Self Care from Last 3 Months Immunizations Immunization Administration Dates Next Due HZV (ZOSTAVAX) 08/02/2016 HepA Adult 03/24/2024,09/25/2023 Influenza high dose QV(65 years or older) (PF) 1 PCV20 09/25/2023 PPD Test 02/27/2018 PPSV23 11/27/2020 RZV (SHINGRIX) 06/22/2022,04/20/2022 SARS-COV-2 (COVID-19),NON-US,Unspecified(HISTORI RAMONA) 03/26/2023 Tdap 06/22/2022,07/21/2011 TyVi (inj) 09/25/2023 influenza trivalent high dose (HD)(PF) 4 Family History Medical History Relation Name Comments Coronary artery disease Father Jose Hypertension Father Jose Lung cancer Father Jose 1984 Smoker Father Jose Basal cell carcinoma Mother More Emphysema Mother More Skin cancer Mother More 1982 Smoker Mother More No Known Problems Son 1 Flash step son No Known Problems Son 2 Aldair Step son Relation Name Status Comments Father Jose Mother More Son 1 Flash Alive Son 2 Aldair Alive Social History Tobacco Use Types Packs/Day Years Used Date Smoking Tobacco: Former Cigarettes 1 20 0 02/07/1975 - 02/07/1995 Passive Smoke Exposure: Past Smokeless Tobacco: Never Tobacco Cessation:Counseling Given: Not Answered Alcohol Use Standard Drinks/Week Comments Yes 4 (1 standard drink = 0.6 oz pur e alcohol) 2-3 on a social occasion [facility] Answer Date Recorded In the past 12 months has e [employer], gas, oil, or water [employer] threatened to shut off services in your [...] your living situation today? 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 Last Filed Vital Signs Vital Sign Reading Time Taken Comments Blood Pressure 119/64 04/06/2025 5:00 AM CDT Julisa e BP Pulse 60 01/19/2025 8:42 AM CDT Temperature 36.3 C (97.3 F) 01/19/2025 8:41 AM CDT Respiratory Rate 20 01/19/2025 8:41 AM CDT Oxygen Saturation 99% 02/18/2024 9:19 AM CDT Inhaled Oxygen Concentration - - Weight 98.2 kg (216 lb 7.9 oz) 01/19/2025 8:41 A M CDT Height 180 cm (5' 10.87) 01/19/2025 8:41 AM CDT Body Mass Index 30.31 01/19/2025 8:41 AM CDT Plan of Treatment Upcoming Encounters Date Type Department Care Team (Late st Contact Info) Description 07/18/2025 9:00 AM RETAIL SERVICES PROFESSIONAL Office Visit Department of Family Medicine, [facility], in [place], [place] [address] [place] [address] Norma Andre M.D. [address] [place] [phone] Health Maintenance Due Date Last Done Comments CT Colonography 1955 Cologuard 1955 RSV vaccine - (32-36 weeks) or 50+ years (1 - Risk 50-74 years 1-dose series) 2005 COVID-19 Vaccine ( season) 2025 09/17/2024, 02/26/2024, 10/14/2023, Additional history exists Influenza Vaccine (#1) 2025 02/26/2024, 2022 Visit: Medicare Annual Wellness 07/14/2025 07/13/2024 Creatinine Level (Kidney Function Test) 08/19/2025 08/19/2024, 04/06/2024, 05/05/2023 Potassium Level 08/19/2025 08/19/2024, 03/10, 05/05/2023 Sodium Level 08/19/2025 08/19/2024, 03/10, 05/05/2023 Thyroid Stimulating Hormone (TSH) test for thyroid function 10/04/2025 10/04/2024, 08/17/2024, 02/18/2024 Visit: Chronic Disease, age 18+ 01/19/2026 01/19/2025, 07/03/2023 Fasting Glucose for Diabetes Screening 02/23/2026 02/23/2025, 08/19/2024, 08/19/2024, Additional history exists Office Visit for Blood Pressure Check / Re-check 04/06/2026 04/06/2025 Colonoscopy 11/24/2027 11/23/2020 (Perf ormed elsewhere) Colorectal Cancer Surveillance 11/24/2027 Lipid (Cholesterol) Screening 02/23/2030 02/23/2025, 05/05/2023 DTaP,Tdap,and Td Vaccines (3 - Td or Tdap) 06/22/2032 06/22/2022, 07/21/2011 Abdominal Aortic Aneurysm (AAA) Screen Completed 09/25/2016, 08/27/2013 Hepatitis C Screening Completed 03/06/2018 Zoster Vaccines Completed 06/22/2022, 04/09, 08/02/2016 Pneumococcal vaccine (50+ years) Completed 09/25/2023, 11/27/2020 Hepatitis A Vaccines Completed 03/24/2024, 09/25/19 Fall Risk Screen (Annual) Completed 07/13/2024 Depression Screening (Annual PHQ-2) Completed 10/12/2024, 07/13/2024 IPV Vaccines Aged Out No longer eligi ble based on patient's age to complete this topic Medical Devices Implanted Type Area Dopeman Device Identifier Shelf Expiration Date Model / Serial / Lot Hip Implant Hip Implant Left: Hip Ocular Lens Ocular Lens Bilateral : Lens Procedures Procedure Name Priority Date/Time Associated Diagnosis Comments LIPID PANEL, S Routine 02/23/2025 8:21 AM CDT Morbid Obesity Body Mass Index >= 35 with Comorbid Condition (HCC) Atherosclerotic Heart Disease Of [place] Coronary Artery Without Angina Pectoris Hyperlipidemia HEMOGLOBIN A1C, B Routine 02/23/2025 8:2 1 AM CDT Hypothyroidism PROSTATE-SPECIFIC AG (PSA) SCRN, S Routine 02/23/2025 8:21 AM CDT Screening Examination Prostate Cancer CT CHEST WITHOUT IV CONTRAST LUNG CANCER SCREEN LOW DOSE RAD - Routine (most inpatients and all outpatients) 01/17/2025 3:51 PM CDT Smoking Tobacco Use Personal History THYROID FUNCTION CASCADE, S Routine 10/04/2024 8:27 AM CDT Hypothyroidism COMPREHENSIVE METABOLIC PANEL, S/P Routine 08/19/2024 4:16 PM CDT Health Maintenance Examination Adult EXTM HCV AB SCRN W/REFLEX TO HCV PCR, S Routine 03/06/2018 6:51 AM CDT from Last 3 Months or Most Recently Relevant to Health Maintenance Results * (ABNORMAL) Lipid Panel (02/23/2025 8:21 AM CDT) Triglycerides 177(H) mg/dL 02/23/2025 11:10 AM CDT [facility] Comment: ----REFERENCE VALUE---- Normal: <150 mg/dL Borderline High: 150-199 mg/dL High: 200-499 mg/dL Very High: > or =500 mg/dL Cholesterol, Total 161 mg/dL 2024 11:10 AM CDT [facility] Comment: ----REFERENCE VALUE---- Desirable: < 200 mg/dL Borderline High: 200 - 239 mg/dL High: > or = 240 mg/dL Cholesterol, LDL, Calculated 90 mg/dL 02/23/2025 11:10 AM CDT [facility] Comment: ----REFERENCE VALUE---- Desirable: <100 mg/dL Above Desirable: 100-129 mg/dL Borderline High: 130-159 mg/dL High: 160-189 mg/dL Very High: >=190 mg/dL ----ADDITIONAL INFORMATION---- LDL cholesterol calculated using the Finch/NIH equation. Cholesterol, HDL 41 >=40 mg/dL 02/24/20 11:10 AM CDT [facility] Cholesterol, Non-HDL, Calculated 120 mg/dL 02/23/2025 11:10 AM CDT [facility] Comment: ----REFERENCE VALUE---- Desirable: <130 mg/dL Above Desirable: 130-159 mg/dL Borderline High: 160-189 mg/dL High: 190-219 mg/dL Very High: > or =220 mg/dL Fasting (8 HR or more) Yes 02/23/2025 8:21 AM CDT [facility] Blood (Blood, Venous) 02/23/2025 8:21 AM CDT 02/23/2025 10:35 AM CDT Sharmaine Crisostomo APRN, C.N.P., D.N.P. LA B BLOOD ADD-ON Final Result [facility] [address] [place] [id number], [facility] in [place] [address] [place] [phone] * PSA (Prostate-Specific Antigen) Screen (02/23/2025 8:21 AM CDT) Prostate-Specific Ag 4.4 <=4.5 ng/mL 02/23/2025 5:19 PM CDT [facility] Comment: ----ADDITIONAL INFORMATION---- The testing method is an electrochemiluminescence assay manufactured by [employer] and performed on the Modular or Karo system. Values obtained with different assay methods or kits may be different and cannot be used interchangeably. Test results cannot be interpreted as absolute evidence for the presence or absence of malignant disease. Blood (Blood, Venous) 02/23/2025 8:21 AM CDT 02/23/2025 10:34 AM CDT Farheen BERNSTEIN, PTristianA.-C., P.A. LAB BLOOD A DD-ON Final Result Performing Organization Address [facility] Co de Phone Number [facility] [address] [place] [address], [place] [facility] in [place] [address] [place] [address] * (ABNORMAL) Hemoglobin A1c (02/23/2025 8:21 AM CDT) Hemoglobin A1c, B 5.8(H) 4.2 - 5.6 % 02/23/2025 11:13 AM CDT [facility] Comment: Hemoglobin A1c values of 5.7-6.4 percent indicate an increased risk for developing diabetes mellitus. In diabetic patients, HbA1c goals should be discussed with healthcare provider. Blood (Blood, Venous) 02/23/2025 8:21 AM CDT 02/23/2025 10:35 AM CDT Sharmaine Crisostomo APRN, C.N.P., D.N.P. LA B BLOOD ADD-ON Final Result Performing Organization Address [facility] Co de Phone Number [facility] [address] [place] [address], [place] [facility] in [place] [address] [place] [phone] * CT Chest Lung Cancer Screen Low Dose without IV Contrast (01/17/2025 3:51 PM CDT) Anatomical Region Laterality Modality Chest, Thoracic RST LOS, Tho racic ARZ LOS, Thoracic FLA LOS N/A Computed Tomography Impressions 01/17/2025 4:05 PM CDT Negative for screening purposes. Benign findings based on imaging features or indolent behavior. RECOMMENDATION: Continue annual screening with low dose CT in 12 months. ASSESSMENT: Lung-RADS 2: Benign Modifier: None Narrative 01/17/2025 4:05 PM CDT EXAM: CT CHEST WITHOUT IV CONTRAST LUNG CANCER SCREEN LOW DOSE COMPARISON: Chest x-ray 07/22/2023. Screening Visit: Baseline FINDINGS: Solid nodules (indeterminate): Present Solid nodule size, lobe, series and image: (1) adjacent 3 mm solid nodules in the right middle lobe (series 3, image 155) (2) 4 mm solid endobronchial nodule in the right middle lobe (series 3, image 161). (3) 5 mm solid nodule within the right lower lobe (series 3, image 184). (4) 3 mm solid nodule within the periphery of the left upper lobe (series 3, image 172). Part solid/sub-solid, pure ground glass nodules: None Coronary artery calcification: Moderate Emphysema: Mild Potentially significant incidental finding that may need additional attention (see report impression): Other incidental findings: Calcified mediastinal lymph nodes, presumably sequela of prior granulomatous disease. Additional calcified granulomas are noted within the spleen. Mild atheromatous plaque throughout the aortic arch. Normal configuration of the great vessels. Ascending aorta and main pulmonary artery are nonaneurysmal. Aortic valve calcifications. Bilateral gynecomastia. Thoracic spondylosis. Right glenohumeral degenerative joint disease. Thoracic spondylosis. Procedure Note Alice Abdullahi D.O. - 01/17/2025 EXAM: CT CHEST WITHOUT IV CONTRAST LUNG CANCER SCREEN LOW DOSE COMPARISON: Chest x-ray 07/22/2023. Screening Visit: Baseline FINDINGS: Solid nodules (indeterminate): Present Solid nodule size, lobe, series and image: (1) adjacent 3 mm solid nodules in the right middle lobe (series 3, ) (2) 4 mm solid endobronchial nodule in the right middle lobe (series 3,image 161). (3) 5 mm solid nodule within the right lower lobe (series 3, image 184). (4) 3 mm solid nodule within the periphery of the left upper lobe (series3, image 172). Part solid/sub-solid, pure ground glass nodules: None Coronary artery calcification: Moderate Emphysema: Mild Potentially significant incidental finding that may need additionalattention (see report impression): Other incidental findings: Calcified mediastinal lymph nodes, presumablysequela of prior granulomatous disease. Additional calcified granulomasare noted within the spleen. Mild atheromatous plaque throughout theaortic arch. Normal configuration of the great vessels. Ascending aorta and main pulmonary artery arenonaneurysmal. Aortic valve calcifications. Bilateral gynecomastia.Thoracic spondylosis. Right glenohumeral degenerative joint disease.Thoracic spondylosis. IMPRESSION: Negative for screening purposes. Benign findings based on imaging featuresor indolent behavior. RECOMMENDATION: Continue annual screening with low dose CT in 12 months. ASSESSMENT: Lung-RADS 2: Benign Modifier: None Sherine Hernandez M.D. IMG CT PROCEDURES Final Result * Thyroid Function [place] (10/04/2024 8:27 AM CDT) TSH, Sensitive 3.5 0.3 - 4.2 mIU/L 10/04/2024 1:17 PM CDT [facility] Blood (Blood, Venous) 10/04/2024 8:27 AM CDT 10/04/2024 12:37 PM CDT Sharmaine Crisostomo APRN, C.N.P., D.N.P. LA B BLOOD ADD-ON Final Result [facility] [address] [place] [phone], [facility] in [place] [address] [place] [phone] * (ABNORMAL) Comprehensive Metabolic Panel (08/19/2024 4:16 PM CDT) Potassium, P 4.5 3.6 - 5.2 mmol/L 08/19/2024 6:17 PM CDT [facility] Sodium, P 141 135 - 145 mmol/L 08/19/2024 6:17 PM CDT [facility] Chloride, P 102 98 - 107 mmol/L 08/19/2024 6:17 PM CDT OWAT Bicarbonate, P 29 22 - 29 mmol/L 08/19/2024 6:17 PM CDT OWAT Anion Gap, P 10 7 - 15 08/19/2024 6:17 PM CDT OW[facility] BUN (Blood Urea Nitrogen), P 28(H) 8 - 24 mg/dL 08/19/2024 6:17 PM CDT OWAT Creatinine 1.10 0.74 - 1.35 mg/dL 08/19/2024 6:17 PM CDT OWAT Estimated GFR (eGFR) 73 >=60 mL/min/BS A 08/19/2024 6:17 PM CDT OWAT Comment: Estimated GFR calculated using the 2020 CKD_EPI creatinine equation. Calcium, Total, P 9.8 8.8 - 10.2 mg/dL 08/19/2024 6:17 PM CDT OWAT Glucose, P 100 70 - 140 mg/dL 08/19/2024 6:17 PM CDT OWAT Protein, Total, P 7.7 6.3 - 7.9 g/dL 08/19/2024 6:17 PM CDT OWAT Albumin, P 4.7 3.5 - 5.0 g/dL 08/19/2024 6:17 PM CDT OWAT Aspartate Aminotransferase (AST), P 16 8 - 48 U/L 08/19/2024 6:17 PM CDT OWAT Alkaline Phosphatase, P 72 40 - 129 U/L 08/19/2024 6:17 PM CDT OWAT Alanine Aminotransferase (ALT), P 21 7 - 55 U/L 08/19/2024 6:17 PM CDT OWAT Bilirubin, Total, P 0.8 0.0 - 1.2 mg/dL 08/19/2024 6:17 PM CDT OWAT Blood (Blood, Venous) 08/19/2024 4:16 PM CDT 08/19/2024 5:48 PM CDT us Sharmaine Crisostomo APRN, C.N.P., D.N.P. LA B BLOOD ADD-ON Final Result [facility] [address] [place] [address], [facility] [place] [address] [place] [address] * EXT HCV Ab Scrn w/Reflex to HCV PCR, Serum (03/06/2018 6:51 AM CDT) EXT HCV Ab Screen non-reacti ve OTHER (SPECIFY IN BUSINESS STRATEGY MANAGER) Blood (Blood, Venous) 03/06/2018 6:51 AM CDT Historical Provider LAB MICROBIOLOGY - BLOOD ORD ERABLES Final Result OTHER (SPECIFY IN BUSINESS STRATEGY MANAGER) N/A from Last 3 Months or Most Recently Relevant to Health [place] [phone] [employer] OPTIONS PROGRAM Care Teams Survey Research Associate Relationship Specialty Start Date End Date Corbin-Sharmaine Barron APRN, C.N.P., D.N.P. [address] [place] [phone] PCP - General Family Medicine 08/18/23
[2025-04-18 11:44] VITALS: BP 186/87; PULSE 100; RESP 16; TEMP 36.6; O2SAT 98; BMI 30.3
== END 2025-04-18 12:43 | disposition left against medical advice (07) ==
LOC: ED 12:42
PROVIDERS: PCP Nurse Practitioner
DX: Z53.21 Procedure and treatment not carried out due to patient leaving prior to being seen by health care provider (principal)